=== PATIENT | female | born 1995 | race Caucasian/White ===

== ENCOUNTER 2023-05-31 03:59 | Emergency (ER) | payer MEDICAID ==
[~2023-05-31 03:59] MED LIST: ACETAMINOPHEN325 M2 PO; BISACODYL10 MG R; DEPAKOTE500 MG PO; FIBER-LAX625 MG PO; GENERLAC10 GM/15 M PO; GUAIFENESIN DM118 ML PO; HALDOL5 M1 PO; IBUPROFEN400 MG PO; NALTREXONE HCL50 MG PO; PREVACID30 M1 PO; TRAZODO50 MG PO; TRAZODONE HCL150 MG PO; TRAZODONE150 MG PO; VITAMIN D1000 IU PO; [UNRECOGNIZED DRUG - OTHER] PO; [UNRECOGNIZED DRUG - OTHER] PO
[2023-05-31] MEDS ORDERED: CEPHALEXIN500 M1 PO (05:03)
== END 2023-05-31 05:12 | disposition home or self-care (01) ==
LOC: ED 03:59
DX: S01.81XA Laceration without foreign body of other part of head, initial encounter (principal); K21.9 Gastro-esophageal reflux disease without esophagitis; F41.9 Anxiety disorder, unspecified; F31.9 Bipolar disorder, unspecified; Z88.6 Allergy status to analgesic agent; Z88.8 Allergy status to other drugs, medicaments and biological substances; Z98.890 Other specified postprocedural states; W01.190A Fall on same level from slipping, tripping and stumbling with subsequent striking against furniture, initial encounter; Y93.02 Activity, running; Y92.89 Other specified places as the place of occurrence of the external cause; Y99.8 Other external cause status